=== PATIENT | female | born 1985 | race Caucasian/White ===

== ENCOUNTER → 2019-08-09 | Outpatient (RCR) | payer MEDICAID, SELFPAY | LOC: M PT 12:36 | PROVIDERS: ATTEND Surgery | DX: T14.8XXA Other injury of unspecified body region, initial encounter (principal); W18.30XA Fall on same level, unspecified, initial encounter; Y92.9 Unspecified place or not applicable ==

== ENCOUNTER 2019-09-07 13:30 | Outpatient (RCR) | payer SELFPAY | END 2019-09-09 | LOC: M PT 13:30 | PROVIDERS: ATTEND Surgery | DX: I89.0 Lymphedema, not elsewhere classified (principal); T14.8XXA Other injury of unspecified body region, initial encounter ==

== ENCOUNTER 2019-10-08 12:00 | Outpatient (RCR) | payer SELFPAY | END 2019-10-09 | LOC: M PT 12:00 | PROVIDERS: ATTEND Surgery | DX: Z51.89 Encounter for other specified aftercare (principal); T14.8XXA Other injury of unspecified body region, initial encounter; Y92.89 Other specified places as the place of occurrence of the external cause ==

== ENCOUNTER 2019-11-01 10:00 | Outpatient (RCR) | payer SELFPAY | END 2019-11-09 | LOC: M PT 10:00 | PROVIDERS: ATTEND Surgery | DX: T14.8XXD Other injury of unspecified body region, subsequent encounter (principal); W18.30XD Fall on same level, unspecified, subsequent encounter; Y92.9 Unspecified place or not applicable ==

== ENCOUNTER 2020-07-01 12:45 | Outpatient (RCR) | payer MEDICAID, SELFPAY | END 2020-07-09 | LOC: M PT 12:45 | PROVIDERS: ATTEND Surgery | DX: T14.8XXA Other injury of unspecified body region, initial encounter (principal) ==